=== PATIENT | female | born 1980 | race Caucasian/White ===

== ENCOUNTER 2024-08-30 18:09 | Emergency (ER) | payer MEDICAID ==
[~2024-08-30] VITALS: Ht 165.1 cm; Wt 78.6 kg
[2024-08-30 18:10] VITALS: TEMP 98.5
[2024-08-30] MEDS ORDERED: AMOX-580 PO (19:06)
[2024-08-30] MEDS ORDERED: IBUP-1984 PO (19:06)
[2024-08-30] MEDS: LIDOcaine/epinephrine/tetracaine TOPICAL sol 3 ML syringe TOP ONE (19:21)
[2024-08-30] MEDS: TETanus/Pertussis (Acell)/Diphther VAC/PF (Tdap-Adult) 0.5ml syringe IMVAC ONE (19:23)
[2024-08-30 19:45] VITALS: BP 113/81; PULSE 68; RESP 16; O2SAT 98
[2024-08-30] MEDS: amox tr/potassium clavulanate 875/125mg TAB PO STA (20:04)
== END 2024-08-30 20:46 | disposition home or self-care (01) ==
LOC: ER 18:09
DX: S61.412A Laceration without foreign body of left hand, initial encounter (principal); Z88.6 Allergy status to analgesic agent; Z79.1 Long term (current) use of non-steroidal anti-inflammatories (NSAID); Z79.2 Long term (current) use of antibiotics; W54.0XXA Bitten by dog, initial encounter; Y93.89 Activity, other specified; Y92.89 Other specified places as the place of occurrence of the external cause; Y99.8 Other external cause status
CPT/HCPCS: 12001; 73130; 90471; 90715; 99283; J3490